=== PATIENT | male | born 1980 | race Caucasian/White ===

== ENCOUNTER 2018-09-05 16:50 | Emergency (ER) | payer OTHER ==
[~2018-09-05] VITALS: Ht 167.6 cm; Wt 70.8 kg
[2018-09-05 16:53] VITALS: BP 154/94
[2018-09-05] MEDS ORDERED: NAPROSYN500 MG PO (17:03)
[2018-09-05] MEDS ORDERED: AMOXICILLIN 50500 M1 PO (17:03)
[2018-09-05] MEDS ORDERED: TRAMADOL 50 MG50 MG PO (17:03)
== END 2018-09-05 17:10 | disposition home or self-care (01) ==
LOC: M.ERS 16:50
DX: R68.84 Jaw pain (principal); F17.210 Nicotine dependence, cigarettes, uncomplicated

== ENCOUNTER 2018-09-29 14:28 | Emergency (ER) | payer OTHER ==
[~2018-09-29] VITALS: Ht 170.2 cm; Wt 74.8 kg
[~2018-09-29 14:28] MED LIST: AMOXICILLIN 50500 M1 PO; NAPROSYN500 MG PO; TRAMADOL 50 MG50 MG PO
[2018-09-29 15:28] VITALS: BP 111/66
== END 2018-09-29 15:28 | disposition home or self-care (01) ==
LOC: M.ERS 14:28
DX: S60.052A Contusion of left little finger without damage to nail, initial encounter (principal); W22.8XXA Striking against or struck by other objects, initial encounter; Y93.89 Activity, other specified; Y92.89 Other specified places as the place of occurrence of the external cause; Y99.8 Other external cause status